=== PATIENT | female | born 1965 | race Caucasian/White ===

== ENCOUNTER 2016-07-05 18:35 | Inpatient (IN) | payer MEDICARE, MEDICAID ==
[2016-07-05] VITALS (18 sets, daily range): BP systolic 66–101; BP diastolic 35–71
[~2016-07-05] VITALS: Ht 162.6 cm; Wt 125.9 kg
[2016-07-05] MEDS ORDERED: NALOXONE 0.4 MG/ML 1 ML (NARCAN) VIAL ONE (18:38)
[2016-07-05] MEDS ORDERED: NS IV 1000 ML 1,000 ML IV ONE ×3 (18:50→20:14)
[2016-07-05 18:57] LABS: BASOPHILS % (AUTO) 0 % (0-10); EOSINOPHILS # (AUTO) 0.1 10^3/uL (0.0-0.3); EOSINOPHILS % (AUTO) 1 % (0-10); LYMPHOCYTES # (AUTO) 1.5 X 10^3 (1.0-4.0); LYMPHOCYTES % (AUTO) 21 % (12-44); MEAN CORPUSCULAR HEMOGLOBIN 31 PG (25-34); MEAN CORPUSCULAR HGB CONC 32 G/DL (32-36); MEAN CORPUSCULAR VOLUME 95 FL (80-99); MEAN PLATELET VOLUME 10.3 FL (7.4-10.4); MONOCYTES # (AUTO) 0.7 X 10^3 (0.0-1.0); MONOCYTES % (AUTO) 10 % (0-12); NEUTROPHILS # (AUTO) 4.8 X 10^3 (1.8-7.8); NEUTROPHILS % (AUTO) 67 % (42-75); PLATELET COUNT 278 10^3/uL (130-400); RED BLOOD COUNT 3.04 10^6/uL (4.35-5.85); RED CELL DISTRIBUTION WIDTH 15.6 % (10.0-14.5); WHITE BLOOD COUNT 7.2 10^3/uL (4.3-11.0)
[2016-07-05] MEDS ORDERED: NALOXONE 0.4 MG/ML 1 ML (NARCAN) VIAL IV ONE (19:00)
[2016-07-05] MEDS ORDERED: NALOXONE 2 MG/2 ML (NARCAN) SYR IV ONE (19:00)
[2016-07-05 19:19] LABS: ALBUMIN 3.3 G/DL (3.2-4.5); BILIRUBIN,TOTAL 0.2 MG/DL (0.1-1.0); CALCIUM 9.3 MG/DL (8.5-10.1); CREATININE SERUM 2.47 MG/DL (0.60-1.30); POTASSIUM 4.9 MMOL/L (3.6-5.0); TOTAL PROTEIN 6.7 G/DL (6.4-8.2)
[2016-07-05 19:37] LABS: BILIRUBIN,URINE 1+ (NEGATIVE); KETONES,URINE NEGATIVE (NEGATIVE); LEUKOCYTE ESTERASE ,URINE 2+ (NEGATIVE); NITRITE,URINE NEGATIVE (NEGATIVE); PH,URINE 5 (5-9); PROTEIN,URINE 1+ (NEGATIVE); UROBILINOGEN,URINE NORMAL (NORMAL)
[2016-07-05 19:47] LABS: INR 1.2 (0.8-1.4); PROTHROMBIN TIME PATIENT 14.8 SEC (12.2-14.7)
[2016-07-05 19:51] LABS: SQUAMOUS EPITHELIAL CELL,UR 0-2 /HPF
[2016-07-05 19:52] LABS: YEAST,URINE RARE /HPF
[2016-07-05 20:07] LABS: ACETAMINOPHEN < 10 UG/ML (10-30); ALCOHOL < 10 MG/DL (<10); MAGNESIUM 1.6 MG/DL (1.8-2.4); SALICYLATE < 5.0 MG/DL (5.0-20.0); hs C REACTIVE PROTEIN 8.94 MG/DL (0.00-0.50)
[2016-07-05] MEDS ORDERED: PREG150C PO (20:11)
[2016-07-05] MEDS ORDERED: ALPR2TAB6 PO (20:11)
[2016-07-05] MEDS ORDERED: FLUO20CA25 PO (20:11)
[2016-07-05] MEDS ORDERED: SPIR100T2 PO (20:11)
[2016-07-05] MEDS ORDERED: VALP250C3 PO (20:11)
[2016-07-05] MEDS ORDERED: LOXA50CA PO (20:11)
[2016-07-05] MEDS ORDERED: DOXE10CA29 PO (20:11)
--- NOTE | 2016-07-05 20:14 | Diagnostic Imaging Report ---
PROCEDURE: CT head and CT cervical spine without contrast. TECHNIQUE: Multiple contiguous axial images were obtained through the brain and cervical spine without the use of intravenous contrast. Sagittal and coronal reformations through the cervical spine were then performed. INDICATION: Fall. Head and neck pain. Comparison made to the head CT from October 23, 2013. FINDINGS: There is no CT demonstration of acute intracranial hemorrhage. There is no evidence of intracranial mass effect. There is no abnormal extra-axial fluid collection. The ventricles are appropriate in size and configuration. The basilar cisterns are patent. No acute posterior fossa abnormality is demonstrated. There is preservation of self-white differentiation. No calvarial fracture evident. No focal soft tissue abnormality is demonstrated. The paranasal sinuses appear clear. The visualized portion of the mastoids are clear. CT cervical spine demonstrates normal alignment. There is normal alignment of the craniocervical junction. There is a normal relationship of lateral masses of C1 and C2. The facets are normally aligned. There is no abnormal facet joint or disc space widening. The vertebral body heights are maintained. No acute cervical spine fracture is demonstrated. There are multilevel degenerative endplate changes as well as multilevel facet arthropathy within the cervical but no evidence to suggest high-grade central canal stenosis. Soft tissues of the neck demonstrate no significant abnormality. Note is made to prior surgical changes involving the left mandible. IMPRESSION: 1. No CT evidence of an acute intracranial abnormality. 2. Cervical spine alignment is normal. Vertebral body heights are maintained without acute fracture. Mild multilevel degenerative endplate changes and facet arthropathy are present throughout the cervical spine without CT evidence of high-grade canal stenosis. Dictated by: Dictated on workstation # [id number]
[2016-07-05] MEDS ORDERED: LEVOFLOXACIN 500 MG/100 ML IV 100 ML IV ONE (20:15)
--- NOTE | 2016-07-05 20:19 | ED General ---
General Chief Complaint: Altered Mental Status Stated Complaint: FALL/SYNCOPE Nursing Triage Note: PT ARRIVED PER EMS, PT WAS FOUND ON FLOOR BY NEIGHBORS, PT IS CONFUSED, SPEECH SLURRED FSBS BY EMS 150'S, PT IS ABLE TO MOVE ALL EXT. UNABLE TO GET C-COLLAR ON D/T BODY HABITUS,C-SPINE MAINTAINED. PT HAS SL IN L HAND BY EMS, PT O2 SAT LOW 80'S, PT ON O2 3L PER N/C O2 UP TO 94% PT HYPOTENSIVE 89/48. PT MUMBLE INCOHERENTLY AT TIMES Nursing Sepsis Screen: No Definite Risk Source of Information: EMS, Old Records Exam Limitations: Other (clinical condition) History of Present Illness Time Seen by Provider: 18:37 Initial Comments This 51-year-old woman presents to emergency room after having a fall in her home. Neighbors heard her fall and found her on the floor in her home. EMS was activated. Patient was extremely somnolent upon arrival but responsive to voice. She was able to follow instructions. Patient was initially registered under the name Meng Rosales and it was quite some time before we were able to determine her true name because her speech was difficult to understand. PLEASE NOTE PRIOR VISITS WERE NOT LINKED TO THE THIS CHART DUE TO NAME ERROR. Patient did not believe she injured her head or neck but she did have tenderness on exam. Placement c-collar was attempted but would not fit due to body habitus. Further attempts were felt more dangerous than simply observing manual C-spine precautions. Patient was not moving much at that time and so manual C-spine precautions were observed from that point forward. Once the actual name was known, review of her chart revealed a recent visit for urinary tract infection. She also had renal failure at that time and was given IV fluids in the ER. It was also noted the patient has a history of prior admission for hypersomnolence and has a history of problems with medication use. Patient was hypoxic on arrival and hypoxia resolved with oxygen applied by nasal cannula. Airway was patent and patient was maintaining her respiratory status. Patient was hypotensive for EMS and on arrival. IV fluids were running. Allergies and Home Medications Allergies Coded Allergies: Penicillins (Verified Allergy, Unknown, 07/05/16) cephalexin (Verified Allergy, Unknown, 07/05/16) prochlorperazine (Verified Allergy, Unknown, 07/05/16) quetiapine (Verified Allergy, Unknown, 07/05/16) Home Medications Albuterol Sulfate 1 Puff Puff 2 PUFF IH QID PRN PRN SHORTNESS OF BREATH ( Reported) Alprazolam 2 Mg Tablet 2 MG PO BID (Reported) Doxepin HCl 10 Mg Capsule 10 MG PO HS (Reported) Fluoxetine HCl 20 Mg Capsule 20 MG PO DAILY (Reported) Glipizide 10 Mg Tablet 10 MG PO DAILY (Reported) Lisinopril 10 Mg Tablet 10 MG PO DAILY (Reported) Loxapine Succinate 50 Mg Capsule 100 MG PO BID (Reported) TAKES 2 (50 MG) CAPSULES Omeprazole 20 Mg Capsule.dr 20 MG PO BID (Reported) Pioglitazone HCl 30 Mg Tablet 30 MG PO DAILY (Reported) Pregabalin 150 Mg Capsule 150 MG PO BID (Reported) Rizatriptan Benzoate 10 Mg Tab.rapdis SL DAILY PRN PRN PRN MIGRAINE (Reported) Simvastatin 40 Mg Tablet 40 MG PO HS (Reported) Spironolactone 100 Mg Tablet 100 MG PO DAILY (Reported) Trihexyphenidyl HCl 5 Mg Tablet 5 MG PO BID WITH MEALS (Reported) Valproic Acid 250 Mg Capsule 500 MG PO DAILY (Reported) TAKES 2 (250 MG) CAPSULES Varenicline Tartrate 1 Mg Tablet 1 MG PO BID (Reported) Constitutional: see HPI EENTM: no symptoms reported Respiratory: see HPI Cardiovascular: see HPI Gastrointestinal: no symptoms reported Genitourinary: see HPI : No Musculoskeletal: no symptoms reported Skin: no symptoms reported Psychiatric/Neurological: See HPI Hematologic/Lymphatic: No Symptoms Reported Past Skxplmv-[id number]-Tpqkzs Hx Patient Social History Alcohol Use: Denies Use Recreational Drug Use: Yes Smoking Status: Former Smoker Recent Infectious Disease Expo: No Recent Hopitalizations: No (UNKNOWN HX) Surgeries HX Surgeries: Yes (Jaw surgery, ovarian cyst) Surgeries: Abdominal (Upper and lower endoscopy), Appendectomy, Bladder Surgery (Urethral dilation) Respiratory Hx Respiratory Disorders: Yes (Tobaccoism, pneumothorax with chest tube placement) Respiratory Disorders: COPD Cardiovascular Hx Cardiac Disorders: Yes Cardiac Disorders: High Cholesterol Neurological Hx Neurological Disorders: Yes Neurological Disorders: Seizure Disorder Reproductive System : No Genitourinary Hx Genitourinary Disorders: Yes Genitourinary Disorders: Kidney Stones, Renal Failure (PKD) Gastrointestinal Hx Gastrointestinal Disorders: Yes Gastrointestinal Disorders: Diverticulosis, Hemorrhoids, Ulcer Endocrine Hx Endocrine Disorders: Yes Endocrine Disorders: Diabetes, Non-Insulin dep HEENT HX ENT Disorders: No Cancer Hx Cancer: No Psychosocial Hx Psychiatric Problems: Yes (History of suicidal ideation and overdose, history of polysubstance abuse) Behavioral Health Disorders: Bipolar Integumentary HX Skin/Integumentary Disorder: No Physical Exam Vital Signs Vital Sign - Last 12Hours 07/05/16 18:35 Temp 96.7 Pulse 95 Resp 18 B/P 89/48 Pulse Ox 94 O2 Delivery Nasal Cannula O2 Flow Rate 2 Capillary Refill : Less Than 3 Seconds General Appearance: No Apparent Distress WD/WN Obese Other (Extremely decreased level of alertness but able to respond to voice and follows commands) HEENT: PERRL/EOMI Normal ENT Inspection Pharynx Normal Other (Teeth absent) Neck: Normal Inspection Supple Other (Tender to palpation) Respiratory: Lungs Clear Normal Breath Sounds No Accessory Muscle Use No Respiratory Distress Cardiovascular: Regular Rate, Rhythm No Edema No Murmur Gastrointestinal: Normal Bowel Sounds Non Tender Soft Extremity: Normal Inspection No Pedal Edema Neurologic/Psychiatric: Motor Weakness (Generalized motor weakness without focal deficit) Other (Extremely somnolent but able to respond to voice and follows commands) Skin: Normal Color Warm/Dry Focused Exam Lactic Acid Level Laboratory Tests Test 07/06/16 15:29 Glucometer 168MG/DL (70-110) H Progress/Results/Core Measures Results/Orders Lab Results Laboratory Tests Test 07/05/16 18:45 07/05/16 19:11 07/05/16 19:30 07/05/16 20:40 Range/Units Acetaminophen Level < 10 L 10-30 UG/ML Alanine Aminotransferase (ALT/SGPT) 22 0-55 U/L Albumin 3.3 3.2-4.5 G/DL Alkaline Phosphatase 57 40-136 U/L Anion Gap 13 5-14 MMOL/L Aspartate Amino Transf (AST/SGOT) 17 5-34 U/L BUN/Creatinine Ratio 15 Basophils # (Auto) 0.0 0.0-0.1 10^3/uL Basophils (%) (Auto) 0 0-10 % Blood Urea Nitrogen 36 H 7-18 MG/DL C-Reactive Protein High Sensitivity 8.94 H 0.00-0.50 MG/DL Calcium Level 9.3 8.5-10.1 MG/DL Carbon Dioxide Level 21 21-32 MMOL/L Chloride Level 107 98-107 MMOL/L Creatinine 2.47 H 0.60-1.30 MG/DL Eosinophils # (Auto) 0.1 0.0-0.3 10^3/uL Eosinophils (%) (Auto) 1 0-10 % Estimat Glomerular Filtration Rate 20 Free Thyroxine 0.81 0.70-1.48 NG/DL Glucose Level 135 H 70-105 MG/DL Hematocrit 29 L 35-52 % Hemoglobin 9.3 L 11.5-16.0 G/DL Lymphocytes # (Auto) 1.5 1.0-4.0 X 10^3 Lymphocytes (%) (Auto) 21 12-44 % Magnesium Level 1.6 L 1.8-2.4 MG/DL Mean Corpuscular Hemoglobin 31 25-34 PG Mean Corpuscular Hemoglobin Concent 32 32-36 G/DL Mean Corpuscular Volume 95 80-99 FL Mean Platelet Volume 10.3 7.4-10.4 FL Monocytes # (Auto) 0.7 0.0-1.0 X 10^3 Monocytes (%) (Auto) 10 0-12 % Neutrophils # (Auto) 4.8 1.8-7.8 X 10^3 Neutrophils (%) (Auto) 67 42-75 % Platelet Count 278 130-400 10^3/uL Potassium Level 4.9 3.6-5.0 MMOL/L Red Blood Count 3.04 L 4.35-5.85 10^6/uL Red Cell Distribution Width 15.6 H 10.0-14.5 % Salicylates Level < 5.0 L 5.0-20.0 MG/DL Serum Alcohol < 10 <10 MG/DL Sodium Level 141 135-145 MMOL/L TSH [place] Testing 0.34 L 0.35-4.94 UIU/ML Total Bilirubin 0.2 0.1-1.0 MG/DL Total Protein 6.7 6.4-8.2 G/DL Troponin I < 0.30 <0.30 NG/ML White Blood Count 7.2 4.3-11.0 10^3/uL Activated Partial Thromboplast Time 30 24-35 SEC INR Comment 1.2 0.8-1.4 Lactic Acid Level 0.64 0.50-2.00 MMOL/L Prothrombin Time 14.8 H 12.2-14.7 SEC Valproic Acid (Depakene) Level 36.6 L 50.0-100.0 UG/ML Ur Tricyclic Antidepressants Screen NEGATIVE NEGATIVE Urine Amphetamines Screen NEGATIVE NEGATIVE Urine Bacteria TRACE /HPF Urine Barbiturates Screen NEGATIVE NEGATIVE Urine Benzodiazepines Screen POSITIVE H NEGATIVE Urine Bilirubin 1+ H NEGATIVE Urine Cannabinoids Screen NEGATIVE NEGATIVE Urine Casts PRESENT /LPF Urine Clarity CLEAR Urine Cocaine Screen NEGATIVE NEGATIVE Urine Color YELLOW Urine Crystals NONE /LPF Urine Culture Indicated YES Urine Glucose (UA) NEGATIVE NEGATIVE Urine Hyaline Casts 5-10 H /LPF Urine Ketones NEGATIVE NEGATIVE Urine Leukocyte Esterase 2+ H NEGATIVE Urine Methadone Screen NEGATIVE NEGATIVE Urine Methamphetamines Screen NEGATIVE NEGATIVE Urine Mucus NEGATIVE /LPF Urine Nitrite NEGATIVE NEGATIVE Urine Opiates Screen NEGATIVE NEGATIVE Urine Oxycodone Screen NEGATIVE NEGATIVE Urine Phencyclidine Screen NEGATIVE NEGATIVE Urine Propoxyphene Screen NEGATIVE NEGATIVE Urine Protein 1+ H NEGATIVE Urine RBC NONE /HPF Urine RBC (Auto) NEGATIVE NEGATIVE Urine Specific [place] 1.015 L 1.016-1.022 Urine Squamous Epithelial Cells 0-2 /HPF Urine Urobilinogen NORMAL NORMAL MG/DL Urine WBC 5-10 H /HPF Urine Yeast RARE /HPF Urine pH 5 5-9 Cruz Test YES-POS Arterial Blood Base Excess -2.8 L -2.5-2.5 MMOL/L Arterial Blood HCO3 22 L 23-27 MMOL/L Arterial Blood Oxygen Saturation 94 94-100 % Arterial Blood Partial Pressure CO2 44 35-45 MMHG Arterial Blood Partial Pressure O2 71 L 79-93 MMHG Arterial Blood Total CO2 23.7 21.0-31.0 MMOL/L Arterial Blood pH 7.33 *L 7.37-7.43 Blood Gas Inspired Oxygen 3L Blood Gas Patient Temperature 97.9 Blood Gas Puncture Site R RAD Blood Gas Ventilator Setting NO Test 07/05/16 23:15 07/06/16 03:15 07/06/16 15:29 Range/Units B-Type Natriuretic Peptide < 10.0 <100.0 PG/ML Basophils # (Auto) 0.0 0.0 0.0-0.1 10^3/uL Basophils (%) (Auto) 0 0 0-10 % Eosinophils # (Auto) 0.1 0.1 0.0-0.3 10^3/uL Eosinophils (%) (Auto) 2 2 0-10 % Hematocrit 28 L 27 L 35-52 % Hemoglobin 8.9 L 8.6 L 11.5-16.0 G/DL Lactic Acid Level 1.49 0.50-2.00 MMOL/L Lymphocytes # (Auto) 1.6 1.5 1.0-4.0 X 10^3 Lymphocytes (%) (Auto) 26 26 12-44 % Mean Corpuscular Hemoglobin 31 31 25-34 PG Mean Corpuscular Hemoglobin Concent 31 L 31 L 32-36 G/DL Mean Corpuscular Volume 97 97 80-99 FL Mean Platelet Volume 10.2 10.2 7.4-10.4 FL Monocytes # (Auto) 0.6 0.6 0.0-1.0 X 10^3 Monocytes (%) (Auto) 10 12 0-12 % Neutrophils # (Auto) 4.0 3.4 1.8-7.8 X 10^3 Neutrophils (%) (Auto) 63 60 42-75 % Platelet Count 272 249 130-400 10^3/uL Red Blood Count 2.85 L 2.76 L 4.35-5.85 10^6/uL Red Cell Distribution Width 15.7 H 15.6 H 10.0-14.5 % White Blood Count 6.4 5.6 4.3-11.0 10^3/uL Alanine Aminotransferase (ALT/SGPT) 16 0-55 U/L Albumin 2.8 L 3.2-4.5 G/DL Alkaline Phosphatase 46 40-136 U/L Anion Gap 9 5-14 MMOL/L Aspartate Amino Transf (AST/SGOT) 12 5-34 U/L BUN/Creatinine Ratio 15 Blood Urea Nitrogen 25 H 7-18 MG/DL Calcium Level 8.1 L 8.5-10.1 MG/DL Carbon Dioxide Level 21 21-32 MMOL/L Chloride Level 116 H 98-107 MMOL/L Creatinine 1.69 H 0.60-1.30 MG/DL Estimat Glomerular Filtration Rate 32 Glucose Level 90 70-105 MG/DL Magnesium Level 2.1 1.8-2.4 MG/DL Phosphorus Level 3.6 2.3-4.7 MG/DL Potassium Level 4.8 3.6-5.0 MMOL/L Sodium Level 146 H 135-145 MMOL/L Total Bilirubin 0.2 0.1-1.0 MG/DL Total Protein 5.6 L 6.4-8.2 G/DL Glucometer 168 H 70-110 MG/DL My Orders Orders-BRUEGGEMANN,LOIS T MD Naloxone Injection (Narcan Injection) (07/05/16 18:38) Cbc With Automated Diff (07/05/16 18:50) Comprehensive Metabolic Panel (07/05/16 18:50) Lactic Acid Analyzer (07/05/16 18:50) Blood Culture (07/05/16 18:50) Sputum Culture (07/05/16 18:50) Ua Culture If Indicated (07/05/16 18:50) Protime With Inr (07/05/16 18:50) Partial Thromboplastin Time (07/05/16 18:50) Chest 1 View, Ap/Pa Only (07/05/16 18:50) O2 (07/05/16 18:50) Saline Lock/Iv-Start (07/05/16 18:50) Saline Lock/Iv-Start (07/05/16 18:50) Vital Signs Adult Sepsis Patie Q1HR (07/05/16 18:50) Remove Rings In Anticipation O (07/05/16 18:50) Ekg Tracing (07/05/16 18:50) Monitor-Rhythm Ecg Trace Only (07/05/16 18:50) Naloxone Injection (Narcan Injection) (07/05/16 19:00) Naloxone Injection (Narcan Injection) (07/05/16 19:00) Ns Iv 1000 Ml (Sodium Chloride 0.9%) (07/05/16 18:50) Ns Iv 1000 Ml (Sodium Chloride 0.9%) (07/05/16 18:50) Acetaminophen (07/05/16 18:57) Alcohol (07/05/16 18:57) Drug Screen Stat (Urine) (07/05/16 18:57) Magnesium (07/05/16 18:57) Salicylate (07/05/16 18:57) Thyroid Analyzer (07/05/16 18:57) Troponin I (07/05/16 18:57) Ct Head/Cervical Spine Wo (07/05/16 19:05) [place] Cath Insertion (07/05/16 19:06) Hs C Reactive Protein (07/05/16 19:06) Valproic Acid (07/05/16 19:43) Urine Culture (07/05/16 19:30) Levofloxacin 500 Mg/100 Ml Iv (Levaquin (07/05/16 20:15) Arterial Blood Gas (07/05/16 20:06) Ns Iv 1000 Ml (Sodium Chloride 0.9%) (07/05/16 20:14) Free T4 (Free Thyroxine) (07/05/16 18:45) Ns Iv 500 Ml (Sodium Chloride 0.9%) (07/05/16 21:01) Medications Given in ED Vital Signs/I&O Vital Sign - Last 12Hours 07/06/16 07/06/16 07/06/16 07/06/16 03:45 04:00 04:00 04:00 Temp 97.0 Pulse 82 88 Resp 14 B/P 85/53 96/50 Pulse Ox 95 94 92 O2 Delivery Nasal Cannula Nasal Cannula O2 Flow Rate 3.00 3.00 3.00 07/06/16 07/06/16 07/06/16 07/06/16 04:15 04:30 04:45 05:00 Pulse 82 85 84 85 Resp B/P 92/57 97/68 99/61 86/34 Pulse Ox 94 93 94 93 O2 Delivery Nasal Cannula Nasal Cannula Nasal Cannula Nasal Cannula O2 Flow Rate 3.00 3.00 3.00 3.00 07/06/16 07/06/16 07/06/16 07/06/16 05:15 05:30 05:45 06:00 Pulse 84 84 85 85 Resp B/P 96/48 96/56 79/55 94/57 Pulse Ox 95 95 94 95 O2 Delivery Nasal Cannula Nasal Cannula Nasal Cannula Nasal Cannula O2 Flow Rate 3.00 3.00 3.00 3.00 07/06/16 07/06/16 07/06/16 07/06/16 06:15 06:30 06:45 07:00 Pulse 85 88 91 92 Resp B/P 90/59 71/54 119/69 Pulse Ox 96 97 95 O2 Delivery Nasal Cannula Nasal Cannula Nasal Cannula O2 Flow Rate 3.00 3.00 3.00 07/06/16 07/06/16 07/06/16 08:00 08:19 12:00 Pulse Ox 94 93 94 O2 Flow Rate 3.00 4.00 3.00 Intake and Output 07/06/16 00:00 Intake Total 2000 ml Balance 2000 ml Blood Pressure Mean: 62 ECG Initial ECG Impression Date: Jul 05, 2016 Initial ECG Impression Time: 18:46 Initial ECG Rate: 92 Initial ECG Rhythm: Normal Sinus Comment Normal sinus rhythm with no ST elevation or depression. No abnormal intervals or axis deviation. Diagnostic Imaging Diagonstic Imaging: CT Plain Films/CT/US/NM/MRI: c-spine, head Comments CT head and C-spine viewed by me and report reviewed. See report below: NAME: [facility] REC#: [id number] PT STATUS: REG ER : 1965 PHYSICIAN: LOIS ESPINOZA MD ADMIT DATE: 07/05/16/ER Signed Date of Exam: 07/05/16 CT HEAD/CERVICAL SPINE WO PROCEDURE: CT head and CT cervical spine without contrast. TECHNIQUE: Multiple contiguous axial images were obtained through the brain and cervical spine without the use of intravenous contrast. Sagittal and coronal reformations through the cervical spine were then performed. INDICATION: Fall. Head and neck pain. Comparison made to the head CT from October 23, 2013. FINDINGS: There is no CT demonstration of acute intracranial hemorrhage. There is no evidence of intracranial mass effect. There is no abnormal extra-axial fluid collection. The ventricles are appropriate in size and configuration. The basilar cisterns are patent. No acute posterior fossa abnormality is demonstrated. There is preservation of self-white differentiation. No calvarial fracture evident. No focal soft tissue abnormality is demonstrated. The paranasal sinuses appear clear. The visualized portion of the mastoids are clear. CT cervical spine demonstrates normal alignment. There is normal alignment of the craniocervical junction. There is a normal relationship of lateral masses of C1 and C2. The facets are normally aligned. There is no abnormal facet joint or disc space widening. The vertebral body heights are maintained. No acute cervical spine fracture is demonstrated. There are multilevel degenerative endplate changes as well as multilevel facet arthropathy within the cervical but no evidence to suggest high-grade central canal stenosis. Soft tissues of the neck demonstrate no significant abnormality. Note is made to prior surgical changes involving the left mandible. IMPRESSION: 1. No CT evidence of an acute intracranial abnormality. 2. Cervical spine alignment is normal. Vertebral body heights are maintained without acute fracture. Mild multilevel degenerative endplate changes and facet arthropathy are present throughout the cervical spine without CT evidence of high-grade canal stenosis. Dictated by: Dictated on workstation # [id number] Dict: 07/05/162004 Trans: 07/05/162013 NATAN [id number] Interpreted by: MICHAEL ROJAS MD Electronically signed by:MICHAEL ROJAS MD 07/05/162015 Diagonstic Imaging: Xray Plain Films/CT/US/NM/MRI: chest Comments NAME: [facility] REC#: [id number] PT STATUS: REG ER : 1965 PHYSICIAN: LOIS ESPINOZA MD ADMIT DATE: 07/05/16/ER Signed Date of Exam: 07/05/16 CHEST 1 VIEW, AP/PA ONLY EXAMINATION: Portable chest compared to prior study from June 05, 2016 INDICATION: Altered mental status. FINDINGS: Lung volumes are low with some basilar atelectasis. There is no alveolar consolidation. There is no large effusion or pneumothorax. Heart size is unchanged allowing for differences in technique. No findings to suggest failure. IMPRESSION: 1. Low lung volumes with some basilar atelectasis. No acute cardiopulmonary process evident. Dictated by: Dictated on workstation # [id number] Dict: 07/05/162037 Trans: 07/05/162045 NATAN [id number] Interpreted by: MICHAEL ROJAS MD Electronically signed by:MICHAEL ROJAS MD 07/05/162048 Critical Care Note Critical Care Start Time: 18:37 Stop Time: 21:30 Time of : 21:10 Progress Care of this patient was initially complicated because she was initially registered under the name Meng Rosales. It was quite some time before we were able to correct the name. The chart from the present visit will have to be linked to the prior visits for Meng Martinez by medical records at a later date. Patient had a recent admission for hypersomnolence. She also has a documented history of prior problems with medication mismanagement. See her prior charts for full history. Patient has been intermittently hypotensive and transiently responsive to IV fluids. She has now received nearly 3 L of normal saline but is still hypotensive with a systolic blood pressure of 86. She had no response to Narcan on arrival, but mental status has now improved significantly. In fact patient just got up out of bed and ambulated to the bedside. She is able to keep her head up with eyes open and carry on a conversation fairly well although she is still rather confused and somnolent. Patient was found to have urinary tract infection. Her prior urine culture showed Aerococcus urinae. Patient was not felt to be septic as she did not meet SIRS criteria. She was started on Levaquin in the emergency room. An ABG was checked to rule out hypercarbia. Patient was found to be in acute renal failure. Urine output has been reasonably good while in the ER. Cervical spine was cleared after review of CT reports. Chest x-ray was then ordered. 21:22 - Case was reviewed with the eICU physician integrity consultant. Plan is to continue bolusing fluids rather than use pressors as patient's overall condition is improving. Patient continues to improve functionally and move about the bed despite hypotension. 3 L of normal saline has been infused thus far and another 500 mL boluse is infusing at present. He also requests that a lactic acid and BMP be checked in 2 hours. These were added to the bridging orders. Departure Communication Time/Spoke to Admitting Phy: 20:[address] Main Impression Impression: Primary Impression: Acute renal failure Qualified Code: N17.9 - Acute kidney failure, unspecified Additional Impressions: Hypotension Qualified Code: I95.9 - Hypotension, unspecified Altered mental status Qualified Code: R41.82 - Altered mental status, unspecified Urinary tract infection Qualified Code: N39.0 - Urinary tract infection, site not specified Hypomagnesemia Disposition: ADMITTED INPATIENT Condition: Improved Decision to Admit Reason: Admit from ER (General) Decision to Admit/Date: Jul 05, 2016 Time/Decision to Admit Time: 19:00 LOIS ESPINOZA MD Jul 05, 2016 20:19
[2016-07-05 20:20] LABS: TROPONIN I < 0.30 NG/ML (<0.30)
--- NOTE | 2016-07-05 20:46 | Diagnostic Imaging Report ---
EXAMINATION: Portable chest compared to prior study from June 05, 2016 INDICATION: Altered mental status. FINDINGS: Lung volumes are low with some basilar atelectasis. There is no alveolar consolidation. There is no large effusion or pneumothorax. Heart size is unchanged allowing for differences in technique. No findings to suggest failure. IMPRESSION: 1. Low lung volumes with some basilar atelectasis. No acute cardiopulmonary process evident. Dictated by: Dictated on workstation # [id number]
[2016-07-05 20:48] LABS: ABG BASE EXCESS -2.8 MMOL/L (-2.5-2.5); ABG HCO3 22 MMOL/L (23-27); ABG OXYGEN SATURATION 94 % (94-100); ABG PCO2 44 MMHG (35-45); ABG PO2 71 MMHG (79-93); ABG TCO2 23.7 MMOL/L (21.0-31.0)
[2016-07-05 20:49] LABS: ABG PH 7.33 (7.37-7.43); ALLENS TEST YES-POS; PATIENT TEMP 97.9
[2016-07-05] MEDS ORDERED: NS IV 500 ML 500 ML IV ONE (21:01)
[2016-07-05] MEDS ORDERED: NS IV 500 ML 500 ML IV PRN (22:00)
[2016-07-05] MEDS ORDERED: ONDANSETRON 4 MG/2 ML (SDV) Z0FRAN IV PRN (22:00)
[2016-07-05] MEDS: CATHETER FLUSH 10 ML SYR IV SCH (22:00)
[2016-07-05] MEDS: MAGNESIUM 1 GM/D5W 100 ML IVPB IV SCH ×2 (22:18→23:16)
[2016-07-05] MEDS: NS IV 1000 ML 1,000 ML IV SCH (22:57)
[2016-07-05 23:27] LABS: BASOPHILS % (AUTO) 0 % (0-10); EOSINOPHILS # (AUTO) 0.1 10^3/uL (0.0-0.3); EOSINOPHILS % (AUTO) 2 % (0-10); LYMPHOCYTES # (AUTO) 1.6 X 10^3 (1.0-4.0); LYMPHOCYTES % (AUTO) 26 % (12-44); MEAN CORPUSCULAR HGB CONC 31 G/DL (32-36); MEAN CORPUSCULAR VOLUME 97 FL (80-99); MEAN PLATELET VOLUME 10.2 FL (7.4-10.4); MONOCYTES # (AUTO) 0.6 X 10^3 (0.0-1.0); MONOCYTES % (AUTO) 10 % (0-12); NEUTROPHILS % (AUTO) 63 % (42-75); PLATELET COUNT 272 10^3/uL (130-400); RED BLOOD COUNT 2.85 10^6/uL (4.35-5.85); RED CELL DISTRIBUTION WIDTH 15.7 % (10.0-14.5); WHITE BLOOD COUNT 6.4 10^3/uL (4.3-11.0)
[2016-07-05 23:31] LABS: MEAN CORPUSCULAR HEMOGLOBIN 31 PG (25-34)
[2016-07-06] VITALS (41 sets, daily range): BP systolic 71–144; BP diastolic 34–91
[2016-07-06] MEDS ORDERED: LACTATED RINGERS 1,000 ML IV ONE ×2 (02:48→03:15)
[2016-07-06 03:34] LABS: BASOPHILS % (AUTO) 0 % (0-10); EOSINOPHILS # (AUTO) 0.1 10^3/uL (0.0-0.3); EOSINOPHILS % (AUTO) 2 % (0-10); LYMPHOCYTES # (AUTO) 1.5 X 10^3 (1.0-4.0); LYMPHOCYTES % (AUTO) 26 % (12-44); MEAN CORPUSCULAR HGB CONC 31 G/DL (32-36); MEAN CORPUSCULAR VOLUME 97 FL (80-99); MEAN PLATELET VOLUME 10.2 FL (7.4-10.4); MONOCYTES # (AUTO) 0.6 X 10^3 (0.0-1.0); MONOCYTES % (AUTO) 12 % (0-12); NEUTROPHILS # (AUTO) 3.4 X 10^3 (1.8-7.8); NEUTROPHILS % (AUTO) 60 % (42-75); PLATELET COUNT 249 10^3/uL (130-400); RED BLOOD COUNT 2.76 10^6/uL (4.35-5.85); RED CELL DISTRIBUTION WIDTH 15.6 % (10.0-14.5); WHITE BLOOD COUNT 5.6 10^3/uL (4.3-11.0)
[2016-07-06 03:35] LABS: MEAN CORPUSCULAR HEMOGLOBIN 31 PG (25-34)
[2016-07-06 03:54] LABS: ALBUMIN 2.8 G/DL (3.2-4.5); BILIRUBIN,TOTAL 0.2 MG/DL (0.1-1.0); CALCIUM 8.1 MG/DL (8.5-10.1); CREATININE SERUM 1.69 MG/DL (0.60-1.30); MAGNESIUM 2.1 MG/DL (1.8-2.4); PHOSPHORUS 3.6 MG/DL (2.3-4.7); POTASSIUM 4.8 MMOL/L (3.6-5.0); TOTAL PROTEIN 5.6 G/DL (6.4-8.2)
[2016-07-06] MEDS: CATHETER FLUSH 10 ML SYR IV SCH ×3 (05:45→22:00)
[2016-07-06] MEDS ORDERED: inSUlin (REGULAR) HUMAN 1 UNIT/0.01 ML (CHARGE PER UNIT) SC SCH (06:00)
[2016-07-06] MEDS ORDERED: ALBUMIN 5% 12.5 GM/250 ML 500 ML IV ONE ×2 (06:01→06:45)
[2016-07-06] MEDS: NS IV 1000 ML 1,000 ML IV SCH (06:16)
--- NOTE | 2016-07-06 06:41 | Pulmonary Consultation ---
History of Present Illness History of Present Illness Date of Consultation 07/06/16 06:35 Date of Admission History of Present Illness 51 yo with hx of DM presented secondary to MS and hypotensive. Pt has been given 5 liters of NS and 25gms of albumin. Pt was found by neighbors after they heard a fall and found her laying on the floor. Pt was very lethargic but responsive to voice. CT of head is negative. Pt takes xanax at home. She states she has not taken any Xanax prior to admission however UDS is positive for benzos. I am consulted for ICU management. Allergies and Home Medications Allergies Coded Allergies: Penicillins (Verified Allergy, Unknown, 07/05/16) cephalexin (Verified Allergy, Unknown, 07/05/16) prochlorperazine (Verified Allergy, Unknown, 07/05/16) quetiapine (Verified Allergy, Unknown, 07/05/16) Home Medications Alprazolam 2 Mg Tablet #60 (Reported) Doxepin HCl 10 Mg Capsule #30 (Reported) Fluoxetine HCl 20 Mg Capsule #30 (Reported) Loxapine Succinate 50 Mg Capsule #120 (Reported) Pregabalin 150 Mg Capsule #60 (Reported) Spironolactone 100 Mg Tablet #30 (Reported) Valproic Acid 250 Mg Capsule #120 (Reported) Past Mqoopro-Kvablb-Yneehs Hx Patient Social History Alcohol Use: Denies Use Recreational Drug Use: No Smoking Status: Former Smoker Type Used: Cigarettes Recent Foreign Travel: No Contact w/Someone Who Travel: No Recent Infectious Disease Expo: No Recent Hopitalizations: No (UNKNOWN HX) Physical Abuse Screen: No Sexual Abuse: No Respiratory Respiratory Disorders: COPD Genitourinary Genitourinary Disorders: Polycystic Kidney Disease Review of Systems Constitutional: : Malaise: WeaknessNo: Chills, Fever, Other, Sweats Eyes: No: Conjunctivae inflammation, Eyelid inflammation, Other, Pain, Redness , Vision change ENT: No: Ear discharge, Ear pain, Mouth pain, Mouth swelling, Nose congestion, Nose discharge, Nose pain, Other, Throat pain, Throat swelling Respiratory: : Cough: Dry: Shortness of breath Cardiovascular: : Lt HeadednessNo: Chest Pain, Edema, Orthopnea, Other, Palpitations, Paroxysmal Noc. Dyspnea Gastrointestinal: No: Abdominal Pain, Constipation, Diarrhea, Hematochezia, Melena, Nausea, Other, Vomiting Neurological: : Confusion: Incoordination: Weakness Exam Exam Vital Signs Date Time Temp Pulse Resp B/P Pulse Ox O2 Delivery O2 Flow Rate FiO2 07/06/16 06:15 85 15 90/59 96 Nasal Cannula 3.00 07/06/16 06:00 85 19 94/57 95 Nasal Cannula 3.00 07/06/16 05:45 85 16 79/55 94 Nasal Cannula 3.00 07/06/16 05:30 84 15 96/56 95 Nasal Cannula 3.00 07/06/16 05:15 84 20 96/48 95 Nasal Cannula 3.00 07/06/16 05:00 85 26 86/34 93 Nasal Cannula 3.00 07/06/16 04:45 84 18 99/61 94 Nasal Cannula 3.00 07/06/16 04:30 85 16 97/68 93 Nasal Cannula 3.00 07/06/16 04:15 82 15 92/57 94 Nasal Cannula 3.00 07/06/16 04:00 88 14 96/50 92 Nasal Cannula 3.00 07/06/16 04:00 94 3.00 07/06/16 04:00 97.0 07/06/16 03:45 82 12 85/53 95 Nasal Cannula 3.00 07/06/16 03:30 85 12 83/50 96 Nasal Cannula 3.00 07/06/16 03:15 85 13 81/44 96 Nasal Cannula 3.00 07/06/16 03:00 86 12 85/38 94 Nasal Cannula 3.00 07/06/16 02:45 86 13 84/45 95 Nasal Cannula 3.00 07/06/16 02:30 86 12 74/54 94 Nasal Cannula 3.00 07/06/16 02:15 86 13 81/58 94 Nasal Cannula 3.00 07/06/16 02:00 87 16 88/75 95 Nasal Cannula 3.00 07/06/16 01:45 87 14 120/61 95 Nasal Cannula 5.00 07/06/16 01:30 86 15 100/51 94 Nasal Cannula 5.00 07/06/16 01:15 85 16 87/47 95 Nasal Cannula 5.00 07/06/16 01:00 88 17 83/52 89 Nasal Cannula 5.00 07/06/16 01:00 88 07/06/16 00:45 84 26 88/58 95 Nasal Cannula 5.00 07/06/16 00:30 87 17 85/59 93 Nasal Cannula 5.00 07/06/16 00:15 85 25 82/58 97 Nasal Cannula 5.00 07/06/16 00:00 97.6 83 16 111/73 96 Nasal Cannula 4.00 07/06/16 00:00 96 4.00 07/05/16 23:45 86 14 90/71 96 Nasal Cannula 5.00 07/05/16 23:30 86 13 85/57 97 Nasal Cannula 5.00 07/05/16 23:15 87 22 91/48 91 Nasal Cannula 5.00 07/05/16 23:00 89 15 90/59 97 Nasal Cannula 5.00 07/05/16 22:45 87 23 76/52 98 Nasal Cannula 5.00 07/05/16 22:30 90 22 91/47 100 Nasal Cannula 5.00 07/05/16 22:15 96 20 100/50 98 Nasal Cannula 5.00 07/05/16 22:10 5.00 07/05/16 22:00 86 15 100/58 94 Nasal Cannula 5.00 07/05/16 21:54 88 07/05/16 21:50 89 21 86/55 89 Nasal Cannula 5.00 07/05/16 21:48 91 19 96/49 83 Nasal Cannula 5.00 07/05/16 21:46 93 26 86/35 Nasal Cannula 5.00 07/05/16 21:45 92 5.00 07/05/16 21:44 86/35 Nasal Cannula 5.00 07/05/16 21:40 98.2 89 18 86/35 92 Nasal Cannula 5.00 07/05/16 21:29 97.1 84 18 96 3 07/05/16 21:15 88 18 92/47 95 Nasal Cannula 3 07/05/16 20:30 89 21 101/44 95 Nasal Cannula 3 07/05/16 20:00 89 14 66/48 98 Nasal Cannula 2 07/05/16 19:30 93 14 96/54 96 Nasal Cannula 2 07/05/16 19:15 95 11 101/64 98 Nasal Cannula 2 07/05/16 18:35 96.7 95 18 89/48 94 Nasal Cannula 2 07/05/16 18:35 94 Nasal Cannula 2 I & O 07/06/16 07:00 Intake Total 6300 ml Output Total 1675 ml Balance 4625 ml General Appearance: No Apparent Distress WD/WN HEENT: PERRL/EOMI Neck: Supple Respiratory: No Accessory Muscle Use No Respiratory Distress Decreased Breath Sounds Cardiovascular: Regular Rate, Rhythm Capillary Refill: Less Than 3 Seconds Gastrointestinal: normal bowel sounds non tender soft no organomegaly Neurologic/Psychiatric: Alert Oriented x3 Skin: Normal Color Warm/Dry Lymphatic: No Adenopathy Results Lab Laboratory Tests 07/05/16 18:45 07/05/16 23:15 07/06/16 03:15 Assessment/Plan Assessment/Plan -MS Change - probably secondary to Xanax- OD - pt denies -S/P fall -initial CT negative -Neurochecks Q2 - currently MS is improved -Hypotension -Continue Albumin -INcrease IVF to 150 of 1/2 NS -Hypernatremia, Hyperchloremia -1/2 NS COPD -SVNS TID -Anemia -occult stools -Morbid obesity Clinical Quality Measures DVT/VTE Risk/Contraindication: Risk Factor Score Per Nursin RFS Level Per Nursing on Admit: 2=Moderate WALT CAMACHO DO Jul 06, 2016 06:41
[2016-07-06] MEDS ORDERED: 1/2 NS IV SOLUTION 1,000 ML IV ONE (06:49)
[2016-07-06] MEDS: 1/2 NS IV SOLUTION 1,000 ML IV SCH ×3 (06:56→22:28)
[2016-07-06] MEDS ORDERED: RT-ALBUTEROL/IPRATROPIUM 3 ML (DUONEB) VIAL INH PRN (07:15)
[2016-07-06] MEDS: RT-ALBUTEROL/IPRATROPIUM 3 ML (DUONEB) VIAL INH SCH ×3 (08:18→19:08)
--- NOTE | 2016-07-06 09:18 | History & Physical-Hospitalist ---
HPI History of Present Illness: HPI/Chief Complaint CC: AMS HPI: This is a 51-year-old white female clinic patient of [facility] with oxygen dependent COPD the presents to the ICU after found unresponsive with acute renal failure. Workup ensued and aggressive IV fluid given for hypotension with improvement of creatinine today. Dr. Tillman has provided consultation services and we believe that it was a Xanax overdose probable nonpurposeful because she denies that very but overall feeling much better and wanting to eat breakfast. She denies any nausea or pain. Source: patient, RN/MD Exam Limitations: clinical condition Date Seen 07/06/16 Attending Physician Adina Main MD PCP jean-pierre,[facility] Referring Physician Date of Admission Jul 05, 2016 at 20:52 Home Medications & Allergies Home Medications Reviewed patient Home Medication Reconciliation Form Allergies Coded Allergies: Penicillins (Verified Allergy, Unknown, 07/05/16) cephalexin (Verified Allergy, Unknown, 07/05/16) prochlorperazine (Verified Allergy, Unknown, 07/05/16) quetiapine (Verified Allergy, Unknown, 07/05/16) Past Wqnafmh-Rdnadn-Hfcirc Hx Patient Social History Marrital Status: single Employed/Student: unemployed Alcohol Use: Denies Use Recreational Drug Use: No Smoking Status: Former Smoker Type Used: Cigarettes Physical Abuse Screen: No Sexual Abuse: No Recent Foreign Travel: No Contact w/other who traveled: No Recent Hopitalizations: No (UNKNOWN HX) Recent Infectious Disease Expo: No Surgeries HX Surgeries: Yes Respiratory Hx Respiratory Disorders: Yes Respiratory Disorders: COPD, Sleep Apnea Cardiovascular Hx Cardiovascular Disorders: No Neurological Hx Neurological Disorders: Yes Neurological Disorders: Neuropathy Genitourinary Hx Genitourinary Disorders: Yes Genitourinary Disorders: Renal Failure, Polycystic Kidney Disease Gastrointestinal Hx Gastrointestinal Disorders: Yes Gastrointestinal Disorders: Chronic Constipation Musculoskeletal Hx Musculoskeletal Disorders: Yes Musculoskeletal Disorders: Arthritis HEENT HX ENT Disorders: No Cancer Hx Cancer: No Psychosocial Hx Psychiatric Problems: No Review of Systems Constitutional: see HPI dizziness weakness EENTM: no symptoms reported Respiratory: no symptoms reported Cardiovascular: no symptoms reported Gastrointestinal: no symptoms reported Genitourinary: decreased output Musculoskeletal: back pain Skin: no symptoms reported Psychiatric/Neurological: Anxiety Depressed All Other Systems Reviewed Negative Unless Noted: Yes Physical Exam Physical Exam Vital Signs Vital Sign - Last 12Hours 07/05/16 18:35 Temp 96.7 Pulse 95 Resp 18 B/P 89/48 Pulse Ox 94 O2 Delivery Nasal Cannula O2 Flow Rate 2 Capillary Refill : Less Than 3 Seconds General Appearance: No Apparent Distress WD/WN Chronically ill Obese Eyes: Bilateral Eye Normal Inspection, Bilateral Eye PERRL HEENT: PERRL/EOMI Normal ENT Inspection Pharynx Normal Neck: Full Range of Motion Normal Inspection Non Tender Supple Carotid Bruit Respiratory: Chest Non Tender Lungs Clear Normal Breath Sounds No Accessory Muscle Use No Respiratory Distress Cardiovascular: Regular Rate, Rhythm No Edema No Gallop No JVD No Murmur Normal Peripheral Pulses Gastrointestinal: Normal Bowel Sounds No Organomegaly No Pulsatile Mass Non Tender Soft Back: Normal Inspection No CVA Tenderness No Vertebral Tenderness Extremity: Normal Capillary Refill Normal Inspection Normal Range of Motion Non Tender No Calf Tenderness No Pedal Edema Neurologic/Psychiatric: Alert No Motor/Sensory Deficits Other (flat affect, drowsy subtle ) Skin: Normal Color Warm/Dry Lymphatic: No Adenopathy Results Results/Procedures Lab Laboratory Tests 07/05/16 18:45 07/05/16 23:15 07/06/16 03:15 Assessment/Plan Admission Diagnosis -MS Change - probably secondary to Xanax- OD - pt denies this possibility but improving -S/P fall -Hypotension s/p 5 liters of fluid and Albumin -Hypernatremia, Hyperchloremia receiving 1/2NS IVF COPD O2 dependent -Anemia -Morbid obesity ARF improved today on IVF Assessment and Plan Maintain critical care management Monitor creatinine O2 Nebs SCD's Monitor sodium level Clinical Quality Measures DVT/VTE Risk/Contraindication: Risk Factor Score Per Nursin RFS Level Per Nursing on Admit: 2=Moderate CORNELIUS EAGLE DO Jul 06, 2016 09:18
--- NOTE | 2016-07-06 09:18 | Diagnostic Imaging Report ---
INDICATION: Hypotension. Portable chest 4:34 AM. Heart size and pulmonary vascularity are normal. Lungs are clear. There are no effusions or pneumothoraces. IMPRESSION: Negative chest. Dictated by: Dictated on workstation # [id number]
[2016-07-06] MEDS: FAMOTIDINE 20MG/2ML IV (PEPCID) IV SCH ×2 (10:04→21:15)
[2016-07-06] MEDS ORDERED: TRIH5TAB2 PO (10:32)
[2016-07-06] MEDS ORDERED: SIMV40TA4 PO (10:32)
[2016-07-06] MEDS ORDERED: LISI10TA2 PO (10:32)
[2016-07-06] MEDS ORDERED: RT-ALBUINH IH (10:32)
[2016-07-06] MEDS ORDERED: PIOG30TA26 PO (10:32)
[2016-07-06] MEDS ORDERED: RIZA10TA25 SL (10:32)
[2016-07-06] MEDS ORDERED: OMEP20CA12 PO (10:32)
[2016-07-06] MEDS ORDERED: VARE1TAB22 PO (10:32)
[2016-07-06] MEDS ORDERED: GLIP10TA13 PO (10:32)
--- NOTE | 2016-07-06 11:43 | ST Dysphagia Evaluation ---
Speech Evaluation-General Medical Diagnosis Mental Status Change Onset Date: Jul 06, 2016 Therapy Diagnosis Therapy Diagnosis: Mild Oral Dysphagia Precautions Precautions: Aspiration Precautions/Isolations: Fall Prevention, Standard Precautions Referral Referring Physician: Dr. Adina Main Reason for Referral: Evaluation/Treatment Clinical Bedside Swallowing Evaluation Medical History Pertinent Medical History: COPD Anemia, Polycystic Kidney Disease Reviewed History: Yes Speech PLF/Current-Dysphagia Prior Level of Function The patient reported she consumed a regular diet with thin liquids prior to admission. The patient denied signs/symptoms of aspiration with any consistency she currently consumes, however, does state she has a difficult time masticating solids without the presence of her dentures (the patient reports her dentures were lost in transit to the hospital). Subjective The patient was recently admitted to [facility] with a diagnosis of altered mental status. The patient greeted the clinician appropriately and agreed to participate in the dysphagia evaluation on this date. CXR: 07/05/2016: No acute cardiopulmonary process evident. Cognitive Status Patient Orientation: Person, Place Oral Motor Skills Dentition: Edentalous Current Food Consistancy: Regular Ability to Follow Directions: Good Oral Expression Ability: Mild Impairment Voice Voice Phonatory-Based Quality: Glottal Haney Voice Pitch: Mildly Low Voice Loudness: Mildly Soft/Quiet Face Facial Symmetry: Symmetrical Oral-Facial Assessment Oral-Facial Dentition: Normal Labial Seal Description: Normal Smile: Normal Puff Cheeks: Normal Lingual Protrusion: Normal Lingual ROM: Normal Lingual Strength: Normal Pharynx Velopharyngeal Move.: Normal Volitional Dry Swallow: Yes Dysphagia Evaluation Consistencies Presented: Regular, Thin Liquid, Mechanical Soft - The patient demonstrated increased mastication time with solid consistencies, however, was able to clear the material with a subsequent bolus of thin liquid. - No pharyngeal deficits were noted throughout the evaluation. - Thin Liquid (via teaspoon and cup sip), Mechanical Soft (scrambled eggs, muffin), Solid (vargas, sausage, apple slices): No signs/symptoms of aspiration were demonstrated with any consistency demonstrated. The patient's vocal quality remained clear throughout the session. The patient denied odynophagia or discomfort upon swallowing. Dietary Recommendations: Regular Liquid Recommendations: Thin Swallowing Precautions: Alternate Liquids/Solids, Decreased Bolus 1/2 Tsp, Decreased Rate of Oral Intake, Small Bites and Sips, Sitting 90 Degrees 30 Post Intake Dysphagia Evaluation Summary Mild oral dysphagia secondary to the patient's current edentulous state. Speech-Plan Treatment Plan Speech Therapy Treatment Plan: Discontinue ST Evaluation, only. Rehab Potential: Guarded Safety Risks/Education Teaching Recipient: Patient Teaching Methods: Discussion Response to Teaching: Verbalize Understanding, Reinforcement Needed Education Topics Provided: Results, Recommendations, Swallowing Strategies, Signs/symptoms of aspiration Time Speech Therapy Time In: 09:20 Speech Therapy Time Out: 09:45 Total Billed Time: 25 Billed Treatment Time 1, SANIA GRANDA Jul 06, 2016 11:43
--- NOTE | 2016-07-06 11:59 | Physical Therapy Evaluation ---
PT Evaluation-General Medical Diagnosis Admission Date Jul 05, 2016 at 20:52 Medical Diagnosis: Mental Status Change Onset Date: Jul 06, 2016 Therapy Diagnosis Therapy Diagnosis: Immobility, Falls Height/Weight Height (Feet): 5 Height (Inches): 4.00 Weight (Pounds): 279 Weight (Ounces): 1.0 Precautions Precautions/Isolations: Fall Prevention, Standard Precautions Referral Physician: Hien Horton Reason for Referral: Evaluation/Treatment Medical History Pertinent Medical History: COPD, DM Additional Medical History obesity, oxygen dependent Current History Patient resides a [facility]. She fell, possibly due to unintentional overdose of Xanax. Reviewed History: Yes Social History Home: Apartment Current Living Status: Alone Entry Into Home: Elevator Prior/Core FIM Prior Level of Function Functional [place] Measure 0=Not Assessed/NA 4=Minimal Assistance 1=Total Assistance 5=Supervision or Setup 2=Maximal Assistance 6=Modified [place] 3=Moderate Assistance 7=Complete [place] Bed Mobility: 6 Transfers (B,C,W/C) (FIM): 6 Gait: 6 PT Evaluation-Current Subjective Pt reports her backside is sore from the fall. She feels she is slowly coming back to her normal level of mobility and cognition but is still not quite right. Objective Patient Orientation: Person, Place, Time Problem Solving: Fair Attachments: Oxygen, Allen Catheter, IV ROM/Strength ROM Lower Extremities WFL Strenght Lower Extremities gross 4/5 throughout Transfers Functional [place] Measure 0=Not Assessed/NA 4=Minimal Assistance 1=Total Assistance 5=Supervision or Setup 2=Maximal Assistance 6=Modified [place] 3=Moderate Assistance 7=Complete [place] Transfers (B, C, W/C) (FIM): 4 Scootin Rollin Supine to/from Sit: 4 Sit to/from Stand: 5 Gait Mode of Locomotion: Walk Anticipated Mode of Locomotion: Walk Distance (FIM): 1=409-80 ft Distance: 50 Gait Level of Assist: 4 Gait Persons Needed: 1 Gait Assistive Device: FWW Comments/Gait Description Pt had a steady gait pattern. Wide base of support. She showed good management of a FWW. She is used to a 4 wheel walker at home. Balance Sitting Static: Good Sitting Dynamic: Good Standing Static: Fair Standing Dynamic: Fair Assessment/Needs Pt has decreased LE strength, impaired bed mobility, and decreased safety during standing activities. She will benefit from therapy to promote safe mobility to allow dc to home. Rehab Potential: Good Post Rehab Potential-Barriers: none PT Title I Math Tutor Goals Title I Math Tutor Goals PT Title I Math Tutor Goals Time Frame: Jul 17, 2016 Transfers (B,C,W/C) (FIM): 6 Gait (FIM): 5 Gait distance (FIM): 3=150 ft Distance: 150 Gait Level of Assist: 5 Gait Assistive Device: Walker 4 Wheeled PT Plan Problem List Problem List: Activity Tolerance, Functional Strength, Safety, Gait Treatment/Plan Treatment Plan: Continue Plan of Care Treatment Plan: Bed Mobility, Functional Activity Nora, Functional Strength, Gait, Safety Treatment Duration: Jul 17, 2016 # of days/week 6 Visits Per Week: 11 Pt/Family Agrees w/Plan: Yes Safety Risks/Education Patient Education: Gait Training, Safety Issues Teaching Recipient: Patient Teaching Methods: Discussion Time/GCodes Time In: 1130 Time Out: 1200 Total Billed Treatment Time: 30 Total Billed Treatment visit, eval moderate complexity LOUISA WILKES PT Jul 06, 2016 11:59
[2016-07-06] MEDS: inSUlin (REGULAR) HUMAN 1 UNIT/0.01 ML (CHARGE PER UNIT) SC SCH ×3 (13:11→21:00)
[2016-07-06] MEDS: CATHETER FLUSH 10 ML SYR IV PRN (21:16)
[2016-07-06] MEDS: LEVOFLOXACIN 250 MG/D5W 50 ML (PRE-MIX) IV SCH (21:20)
[2016-07-07] VITALS (11 sets, daily range): BP systolic 90–145; BP diastolic 57–92
[2016-07-07 04:40] LABS: BASOPHILS % (AUTO) 0 % (0-10); EOSINOPHILS # (AUTO) 0.1 10^3/uL (0.0-0.3); EOSINOPHILS % (AUTO) 1 % (0-10); LYMPHOCYTES # (AUTO) 1.6 X 10^3 (1.0-4.0); LYMPHOCYTES % (AUTO) 26 % (12-44); MEAN CORPUSCULAR HEMOGLOBIN 30 PG (25-34); MEAN CORPUSCULAR HGB CONC 31 G/DL (32-36); MEAN CORPUSCULAR VOLUME 97 FL (80-99); MEAN PLATELET VOLUME 10.4 FL (7.4-10.4); MONOCYTES # (AUTO) 0.6 X 10^3 (0.0-1.0); MONOCYTES % (AUTO) 10 % (0-12); NEUTROPHILS # (AUTO) 3.8 X 10^3 (1.8-7.8); NEUTROPHILS % (AUTO) 63 % (42-75); PLATELET COUNT 269 10^3/uL (130-400); RED BLOOD COUNT 2.79 10^6/uL (4.35-5.85); RED CELL DISTRIBUTION WIDTH 15.7 % (10.0-14.5); WHITE BLOOD COUNT 6.1 10^3/uL (4.3-11.0)
[2016-07-07 05:09] LABS: CALCIUM 8.7 MG/DL (8.5-10.1); CREATININE SERUM 1.49 MG/DL (0.60-1.30); MAGNESIUM 1.8 MG/DL (1.8-2.4); PHOSPHORUS 3.7 MG/DL (2.3-4.7); POTASSIUM 4.6 MMOL/L (3.6-5.0)
[2016-07-07] MEDS: 1/2 NS IV SOLUTION 1,000 ML IV SCH (05:35)
[2016-07-07] MEDS: inSUlin (REGULAR) HUMAN 1 UNIT/0.01 ML (CHARGE PER UNIT) SC SCH ×4 (06:00→21:16)
[2016-07-07] MEDS: KCL 20 MEQ TAB (K-DUR) PO SCH (06:00)
[2016-07-07] MEDS ORDERED: POTASSIUM CL 10MEQ/50ML IVPB 50 ML IV SCH (06:00)
[2016-07-07] MEDS ORDERED: MAGNESIUM 1 GM/100 ML IVPB 100 ML IV SCH (06:00)
[2016-07-07] MEDS: CATHETER FLUSH 10 ML SYR IV SCH ×3 (06:00→21:16)
--- NOTE | 2016-07-07 07:06 | Pulmonary Progress Note ---
Subjective Subjective/Events-last exam PT is much better today and is A&0 X 3 Exam Exam Vital Signs Date Time Temp Pulse Resp B/P Pulse Ox O2 Delivery O2 Flow Rate FiO2 07/07/16 06:00 93 23 141/92 92 Nasal Cannula 2.00 07/07/16 05:30 Nasal Cannula 2.00 07/07/16 05:00 79 18 107/65 94 Nasal Cannula 3.00 07/07/16 04:00 94 3.00 07/07/16 04:00 97.5 80 15 115/72 95 Nasal Cannula 3.00 07/07/16 03:00 85 14 90/57 92 Nasal Cannula 3.00 07/07/16 02:00 93 18 114/71 91 Nasal Cannula 3.00 07/07/16 01:00 93 07/07/16 01:00 85 18 108/72 91 Nasal Cannula 3.00 07/07/16 00:00 94 3.00 07/07/16 00:00 98.3 88 22 107/72 91 Nasal Cannula 3.00 07/06/16 23:00 74 18 124/74 94 Nasal Cannula 3.00 07/06/16 22:00 103 21 112/65 96 Nasal Cannula 3.00 07/06/16 21:00 96 21 103/67 94 Nasal Cannula 3.00 07/06/16 20:00 94 3.00 07/06/16 20:00 100.0 100 17 110/69 92 Nasal Cannula 3.00 07/06/16 19:09 88 4.00 07/06/16 19:00 98 18 144/91 96 Nasal Cannula 3.00 07/06/16 19:00 100 07/06/16 18:00 98 141/85 99 Nasal Cannula 3.00 07/06/16 17:00 101 79/47 92 Nasal Cannula 3.00 07/06/16 16:00 94 3.00 07/06/16 16:00 23 107/80 100 Nasal Cannula 3.00 07/06/16 15:00 107 23 107/69 Nasal Cannula 3.00 07/06/16 14:00 109 56 115/70 Nasal Cannula 3.00 07/06/16 13:00 108 28 94/85 Nasal Cannula 3.00 07/06/16 12:00 94 3.00 07/06/16 10:00 106 20 104/61 Nasal Cannula 3.00 07/06/16 09:00 100 26 Nasal Cannula 3.00 07/06/16 08:19 93 4.00 07/06/16 08:00 92 36 111/65 95 Nasal Cannula 3.00 07/06/16 08:00 94 3.00 I & O 07/07/16 07:00 Intake Total 5480 ml Output Total 4850 ml Balance 630 ml General Appearance: No Apparent Distress WD/WN Obese Other (Extremely decreased level of alertness but able to respond to voice and follows commands) HEENT: PERRL/EOMI Normal ENT Inspection Pharynx Normal Other (Teeth absent) Neck: Normal Inspection Supple Other (Tender to palpation) Respiratory: Lungs Clear Normal Breath Sounds No Accessory Muscle Use No Respiratory Distress Cardiovascular: Regular Rate, Rhythm No Edema No Murmur Capillary Refill: Less Than 3 Seconds Gastrointestinal: normal bowel sounds non tender soft no organomegaly Extremity: Normal Inspection No Pedal Edema Neurologic/Psychiatric: Motor Weakness (Generalized motor weakness without focal deficit) Other (Extremely somnolent but able to respond to voice and follows commands) Skin: Normal Color Warm/Dry Lymphatic: No Adenopathy Results Lab Laboratory Tests 07/05/16 18:45 07/05/16 23:15 07/06/16 03:15 07/07/16 04:05 Assessment/Plan Assessment/Plan -MS Change - resolved -S/P fall -initial CT negative -Neurochecks Q2 - currently MS is improved Debility -consult PT / OT -Hypotension -resolved -Hypernatremia, Hyperchloremia -1/2 NS COPD -SVNS TID -Anemia -occult stools -Morbid obesity Transfer pt to 4th floor. Clinical Quality Measures DVT/VTE Risk/Contraindication: Risk Factor Score Per Nursin RFS Level Per Nursing on Admit: 2=Moderate WALT CAMACHO DO Jul 07, 2016 07:06
[2016-07-07] MEDS: RT-ALBUTEROL/IPRATROPIUM 3 ML (DUONEB) VIAL INH SCH ×3 (07:40→19:39)
[2016-07-07] MEDS: FAMOTIDINE 20MG/2ML IV (PEPCID) IV SCH ×2 (08:14→21:15)
--- NOTE | 2016-07-07 08:46 | Diagnostic Imaging Report ---
INDICATION: Dyspnea. DISCUSSION: Single portable upright view of the chest was obtained, comparison 07/06/2016. Improved aeration of the bilateral lungs. Normal heart size. No focal consolidation, pleural fluid, or pneumothorax. No osseous abnormality. IMPRESSION: 1. Negative portable chest. Dictated by: Dictated on workstation # [id number]
--- NOTE | 2016-07-07 09:21 | Progress Note-Hospitalist ---
Progress Note HPI/CC on Admission CC: AMS HPI: This is a 51-year-old white female clinic patient of [facility] with oxygen dependent COPD the presents to the ICU after found unresponsive with acute renal failure. Workup ensued and aggressive IV fluid given for hypotension with improvement of creatinine today. Dr. Tillman has provided consultation services and we believe that it was a Xanax overdose probable nonpurposeful because she denies that very but overall feeling much better and wanting to eat breakfast. She denies any nausea or pain. Progress Notes/Assess & Plan Date Seen 07/07/16 Admission Dx/Process -MS Change - probably secondary to Xanax- OD - pt denies this possibility but improving -S/P fall -Hypotension s/p 5 liters of fluid and Albumin -Hypernatremia, Hyperchloremia receiving 1/2NS IVF COPD O2 dependent -Anemia -Morbid obesity ARF improved today on IVF Diagonsis/Assessment & Plan Patient feeling much better but just weak and has a fall risk Declines alf facility at discharge that she has plenty of people helping her at the night for [facility] Creatinine much improved at 1.4 Overall doing much better and oxygen maintain and denies any shortness of breath No fever, vital signs stable, pleasant, chronically ill, obese Regular rate and rhythm, clear to auscultation bilaterally No edema Laboratory Tests 07/07/16 04:05 Assessment: -MS Change - probably secondary to Xanax- OD - pt denies this possibility but improving and now resolved -S/P fall w/increased fall risk residual -Hypotension s/p 5 liters of fluid and Albumin -Hypernatremia, Hyperchloremia receiving 1/2NS IVF COPD O2 dependent -Anemia -Morbid obesity ARF improved today on IVF Plan: Tx to floor Monitor creatinine O2 Nebs SCD's Monitor sodium level SW consultation May need PT/OT CORNELIUS EAGLE DO Jul 07, 2016 09:21
--- NOTE | 2016-07-07 10:57 | Physical Therapy Daily Note ---
PT Daily Note-Current Subjective Palma thinks she will be going home to [facility] tomorrow. She states she feels confident in her ability to be home. She has an aide to help her with shopping etc. Has FWW. Mental Status Patient Orientation: Person, Place, Time, Situation Attachments: Oxygen, Allen Catheter, IV O2 @ 3L Transfers Functional [place] Measure 0=Not Assessed/NA 4=Minimal Assistance 1=Total Assistance 5=Supervision or Setup 2=Maximal Assistance 6=Modified [place] 3=Moderate Assistance 7=Complete IndependenceIRFPAI Quality Coding Scale 6 Independent with activity with or without an assistive device 5 Patient requires set up or clean up by helper. Patient completes activity by themselves 4 Supervision or touching assist (CGA). [place] provide cues , steadying assist 3 The helper provides less than half the effort to complete the activity 2 The helper provides more than half the effort to complete the activity 1 Dependent. The helper does all the effort to complete an activity 7 Patient refused to complete or attempt activity 9 The patient did not perform the activity before the current illness or injury 88 Not attempted due to Medical conditions or safety concerns Transfers (B, C, W/C) (FIM): 5 Scootin Supine to/from Sit: 5 Sit to/from Stand: 5 Bed to/from Chair: 5 Set up for )2 and Ivs. Weight Bearing Weight Bearing Restriction: Weight Bearing/Tolerated Gait Training Gait (FIM): 4 Distance: 200 ft Gait Level of Assist: 1 Gait Persons Needed: 1 Gait Assistive Device: FWW Needed to sit and rest after 150 ft. O2 sats remained above 95%. Exercises Supine Ex: Ankle pumps, Quad Set, Heel Slides Supine Reps: 10 Assessment Current Status: Good Progress Moving well, only hindered by IVs and O2. Fatigued with amb but O2 sats remained above 95% PT Fpc Goals Clinical Laboratory Aide Goals PT Clinical Laboratory Aide Goals Time Frame: Jul 17, 2016 Transfers (B,C,W/C) (FIM): 6 Gait (FIM): 5 Gait distance (FIM): 3=150 ft Distance: 150 Gait Level of Assist: 5 Gait Assistive Device: Walker 4 Wheeled PT Plan Problem List Problem List: Activity Tolerance, Functional Strength Treatment/Plan Treatment Plan: Continue Plan of Care Treatment Plan: Bed Mobility, Functional Activity Nora, Functional Strength, Gait, Safety Treatment Duration: Jul 17, 2016 Visits Per Week: 11 Pt/Family Agrees w/Plan: Yes Safety Risks/Education Patient Education: Gait Training Time/GCodes Time In: 1005 Time Out: 1030 Total Billed Treatment Time: 25 Total Billed Treatment Visit, EX, GT MARTA EDWARDS PT Jul 07, 2016 10:57
--- NOTE | 2016-07-07 16:11 | Occupational Therapy Eval ---
OT Evaluation-General/PLF Medical Diagnosis Admission Date Jul 05, 2016 at 20:52 Medical Diagnosis: AMS, acute renal failure Onset Date: Jul 05, 2016 Therapy Diagnosis Therapy Diagnosis: decreased self care Height/Weight Height (Feet): 5 Height (Inches): 4.00 Weight (Pounds): 277 Weight (Ounces): 9.6 Precautions Precautions/Isolations: Fall Prevention, Standard Precautions Safety Interventions: Bed Exit Alarm, Reorient-PRN Weight Bear Status Weight Bearing Restriction: Weight Bearing/Tolerated Referral Physician: Layne Referral Reason: Evaluation/Treatment Medical History Pertinent Medical History: Arthritis, COPD, DM, Neuropathy, Renal Insufficiency Additional Medical History Morbid obesity, tobaccoism, O2 dependant, sleep apnea, seizure disorder, renal failure, PKD, diverticulosis, ulcer, chronic constipation, bipolar, suicide ideation, polysubstance abuse Current History Fell at home ([facility]), found to have UTI and ARF, hypotension. Transferred to floor today Reviewed History: Yes Social History Home: Apartment ([facility]) Current Living Status: Alone Entry Into Home: Elevator ADL-Prior Level of Function ADL PLOF Comments Pt reported that she has been able to manage all of her own basic ADLs until now. She normally walks with a FWW and uses O2 at home throughout the day. She does not drive. DME/Equipment: Tub/Shower Drive Self: No OT Current Status Subjective Pt seen in room, asleep but easily awakened. Pt reported pain 0/10. Appearance Alert, somewhat cooperative. Believed she was at the [facility] and had been to group activities this afternoon Mental Status/Objective Patient Orientation: Person, Time (close on date), Situation Attachments: IV, Oxygen Current Hand Dominance: Right Upper Extremity ROM Grossly WFL bilat Upper Extremity Strength Grossly WFL bilat ADL-Treatment ADL-Current Pt was able to move from supine to sit EOB by herself but with some difficulty due to weight. Able to sit EOB without support. Could reach forward and take slipper socks off. Pt declined other ADLs, including toileting or dressing. Pt reported she may be discharged to home tomorrow. Functional [place] Measure 0=Not Assessed/NA 4=Minimal Assistance 1=Total Assistance 5=Supervision or Setup 2=Maximal Assistance 6=Modified [place] 3=Moderate Assistance 7=Complete IndependenceIRFPAI Quality Coding Scale 6 Independent with activity with or without an assistive device 5 Patient requires set up or clean up by helper. Patient completes activity by themselves 4 Supervision or touching assist (CGA). [place] provide cues , steadying assist 3 The helper provides less than half the effort to complete the activity 2 The helper provides more than half the effort to complete the activity 1 Dependent. The helper does all the effort to complete an activity 7 Patient refused to complete or attempt activity 9 The patient did not perform the activity before the current illness or injury 88 Not attempted due to Medical conditions or safety concerns Education OT Patient Education: Purpose of tx/functional activities, Rehab process Teaching Recipient: Patient Response to Teaching: Verbalize Understanding OT Veneer Gluer Goals Veneer Gluer Goals Time Frame: Jul 10, 2016 Grooming(FIM): 6 Bathing(FIM): 6 Upper Body Dressing(FIM): 6 Lower Body Dressing(FIM): 6 Toileting(FIM): 6 Toilet/Commode Transfer(FIM): 6 Shower Transfer(FIM): 6 Additional Goals: 3-ImproveStrength/Nora 1=Demonstrate adherence to instructed precautions during ADL tasks. 2=Patient will verbalize/demonstrate understanding of assistive devices/ modifications for ADL. 3=Patient will improve strength/tolerance for activity to enable patient to perform ADL's. OT Education/Plan Problem List/Assessment Assessment: Dependent Transfers, Impaired Funct Balance, Impaired Self-Care Skills Pt would benefit from skilled OT to increase her independence in basic self care to allow her to return home safely to her apartment Discharge Recommendations Plan/Recommendations: Continue POC Treatment Plan/Plan of Care Treatment,Training & Education: Yes Patient would benefit from OT for education, treatment and training to promote independence in ADL's, mobility, safety and/or upper extremity function for ADL' s. Plan of Care: ADL Retraining, Functional Mobility, UE Neuromus Re-Ed/Coord Treatment Duration: Jul 10, 2016 # of days/week 4 Visits Per Week: 4 Agreement: Yes Rehab Potential: Good Time/GCodes Start Time: 15:40 Stop Time: 15:55 Total Time Billed (hr/min): 15 Billed Treatment Time visit, 15 minutes evaluation low intensity JUAN ALBERTO BOB OT Jul 07, 2016 16:11
[2016-07-07] MEDS: LEVOFLOXACIN 250 MG/D5W 50 ML (PRE-MIX) IV SCH (21:15)
[2016-07-08] MEDS: KCL 20 MEQ TAB (K-DUR) PO SCH (04:38)
[2016-07-08 05:35] LABS: BASOPHILS % (AUTO) 0 % (0-10); EOSINOPHILS # (AUTO) 0.1 10^3/uL (0.0-0.3); EOSINOPHILS % (AUTO) 1 % (0-10); LYMPHOCYTES # (AUTO) 1.4 X 10^3 (1.0-4.0); LYMPHOCYTES % (AUTO) 18 % (12-44); MEAN CORPUSCULAR HEMOGLOBIN 30 PG (25-34); MEAN CORPUSCULAR HGB CONC 31 G/DL (32-36); MEAN CORPUSCULAR VOLUME 96 FL (80-99); MEAN PLATELET VOLUME 9.9 FL (7.4-10.4); MONOCYTES # (AUTO) 0.8 X 10^3 (0.0-1.0); MONOCYTES % (AUTO) 9 % (0-12); NEUTROPHILS # (AUTO) 5.8 X 10^3 (1.8-7.8); NEUTROPHILS % (AUTO) 72 % (42-75); PLATELET COUNT 268 10^3/uL (130-400); RED BLOOD COUNT 3.05 10^6/uL (4.35-5.85); WHITE BLOOD COUNT 8.1 10^3/uL (4.3-11.0)
[2016-07-08] MEDS: CATHETER FLUSH 10 ML SYR IV SCH ×2 (05:57→14:00)
[2016-07-08 05:58] LABS: CALCIUM 9.7 MG/DL (8.5-10.1); CREATININE SERUM 1.49 MG/DL (0.60-1.30); MAGNESIUM 1.6 MG/DL (1.8-2.4); PHOSPHORUS 4.4 MG/DL (2.3-4.7)
[2016-07-08 06:09] LABS: POTASSIUM 5.2 MMOL/L (3.6-5.0)
[2016-07-08] MEDS: inSUlin (REGULAR) HUMAN 1 UNIT/0.01 ML (CHARGE PER UNIT) SC SCH ×2 (06:15→11:30)
--- NOTE | 2016-07-08 06:33 | Pulmonary Progress Note ---
Subjective Subjective/Events-last exam No complications noted. Exam Exam Vital Signs Date Time Temp Pulse Resp B/P (MAP) Pulse Ox O2 Delivery O2 Flow Rate FiO2 07/07/16 23:16 98.2 93 20 130/74 94 Nasal Cannula 3.00 07/07/16 20:00 95 3.00 07/07/16 19:39 92 3.00 07/07/16 16:00 97.9 106 20 145/78 96 Nasal Cannula 3.00 07/07/16 14:04 3.00 07/07/16 12:00 95 3.00 07/07/16 11:43 97.4 102 16 113/65 95 Nasal Cannula 3.00 07/07/16 08:12 91 3.00 07/07/16 08:10 97.8 103 23 139/75 91 Nasal Cannula 3.00 07/07/16 07:40 91 2.00 07/07/16 07:00 94 I & O 07/08/16 07:00 Intake Total 2280 ml Output Total 3050 ml Balance -770 ml General Appearance: No Apparent Distress, WD/WN, Obese HEENT: PERRL/EOMI, Normal ENT Inspection, Pharynx Normal, Other (Teeth absent) Neck: Normal Inspection, Supple, Other (Tender to palpation) Respiratory: Lungs Clear, Normal Breath Sounds, No Accessory Muscle Use, No Respiratory Distress Cardiovascular: Regular Rate, Rhythm, No Edema, No Murmur Capillary Refill: Less Than 3 Seconds Gastrointestinal: normal bowel sounds, non tender, soft, no organomegaly Extremity: Normal Inspection, No Pedal Edema Neurologic/Psychiatric: Motor Weakness (Generalized motor weakness without focal deficit) Skin: Normal Color, Warm/Dry Lymphatic: No Adenopathy Results Lab Laboratory Tests 07/07/16 04:05 07/08/16 05:28 Assessment/Plan Assessment/Plan -MS Change - resolved -S/P fall Debility -consult PT / OT -Hypotension -resolved COPD -SVNS TID -Anemia -occult stools -Morbid obesity PT is doing much better. No complications noted. Clinical Quality Measures DVT/VTE Risk/Contraindication: Risk Factor Score Per Nursin RFS Level Per Nursing on Admit: 2=Moderate WALT CAMACHO DO Jul 08, 2016 06:33
[2016-07-08] MEDS: RT-ALBUTEROL/IPRATROPIUM 3 ML (DUONEB) VIAL INH SCH ×2 (07:42→14:06)
[2016-07-08 08:36] VITALS: BP 161/78
[2016-07-08] MEDS: FAMOTIDINE 20MG/2ML IV (PEPCID) IV SCH (08:53)
[2016-07-08] MEDS: CATHETER FLUSH 10 ML SYR IV PRN (08:53)
--- NOTE | 2016-07-08 09:13 | Occupational Ther Daily Note ---
OT Current Status-Daily Note Subjective Pt alert, lying in bed. Pt agreed to therapy. Pt stated "I am going home today." Mental Status/Objective Patient Orientation: Person, Place, Time, Situation Functional [place] Measure 0=Not Assessed/NA 4=Minimal Assistance 1=Total Assistance 5=Supervision or Setup 2=Maximal Assistance 6=Modified [place] 3=Moderate Assistance 7=Complete [place] Attachments: IV, Oxygen ADL-Treatment Bathing (FIM): 6 (Using shower bench, grabbars and hand held shower pt is able to complete. O2 used in shower.) Bathing Location: L Arm, R Arm, L Upper Leg, R Upper Leg, L Lower Leg ( including foot), R Lower Leg (including foot), Chest, Abdomen, Buttocks, Perineal Area Upper Body (FIM): 6 (Pt just put back on her clothes she doffed. Pt able to complete by self.) Lower Body Dressing (FIM): 6 (Pt doffed socks by using feet to push off. Donned /doffed pants by self using grabbar and FWW in standing when hiking pants over feet. Pt donned socks while sitting on bed and bringing feet up onto bed to reach feet.) Transfers (B, C, W/C) (FIM): 6 (Using FWW) Shower Transfer(FIM): 6 (Using FWW, shower bench and grabbars pt is able to complete by self.) After therapy, pt lying in bed with call light/phone in reach. All needs met in room, O2 in place. OT Short Term Goals Short Term Goals 1=Demonstrate adherence to instructed precautions during ADL tasks. 2=Patient will verbalize/demonstrate understanding of assistive devices/ modifications for ADL. 3=Patient will improve strength/tolerance for activity to enable patient to perform ADL's. OT Senior Care Goals Senior Care Goals Time Frame: Jul 10, 2016 Grooming(FIM): 6 Bathing(FIM): 6 Upper Body Dressing(FIM): 6 Lower Body Dressing(FIM): 6 Toileting(FIM): 6 Toilet/Commode Transfer(FIM): 6 Shower Transfer(FIM): 6 Additional Goals: 3-ImproveStrength/Nora 1=Demonstrate adherence to instructed precautions during ADL tasks. 2=Patient will verbalize/demonstrate understanding of assistive devices/ modifications for ADL. 3=Patient will improve strength/tolerance for activity to enable patient to perform ADL's. OT Education/Plan Problem List/Assessment Pt would benefit from skilled OT to increase her independence in basic self care to allow her to return home safely to her apartment Discharge Recommendations Plan/Recommendations: Continue POC Treatment Plan/Plan of Care Patient would benefit from OT for education, treatment and training to promote independence in ADL's, mobility, safety and/or upper extremity function for ADL' s. Plan of Care: ADL Retraining, Functional Mobility, UE Neuromus Re-Ed/Coord Treatment Duration: Jul 10, 2016 Visits Per Week: 4 Agreement: Yes Rehab Potential: Good Time/GCodes Start Time: 08:30 Stop Time: 08:53 Total Time Billed (hr/min): 23 Billed Treatment Time 1 visit-ADL 2 (23 min) ISAEL HAYWOOD Jul 08, 2016 09:13
--- NOTE | 2016-07-08 09:17 | Discharge Summary-Hospitalist ---
Diagnosis/Chief Complaint Date of Admission Jul 05, 2016 at 20:52 Date of Discharge Discharge Date: Jul 08, 2016 Admission Diagnosis -MS Change - probably secondary to Xanax- OD - pt denies this possibility but improving -S/P fall -Hypotension s/p 5 liters of fluid and Albumin -Hypernatremia, Hyperchloremia receiving 1/2NS IVF COPD O2 dependent -Anemia -Morbid obesity ARF improved today on IVF Discharge Diagnosis -MS Change - probably secondary to Xanax- OD - pt denies this possibility but improving -S/P fall -Hypotension s/p 5 liters of fluid and Albumin -Hypernatremia, Hyperchloremia receiving 1/2NS IVF COPD O2 dependent -Anemia -Morbid obesity ARF improved today on IVF Patient feeling much better but just weak and has a fall risk Declines [facility] at discharge that she has plenty of people helping her at the night for [facility] Creatinine much improved at 1.4 Overall doing much better and oxygen maintain and denies any shortness of breath No fever, vital signs stable, pleasant, chronically ill, obese Regular rate and rhythm, clear to auscultation bilaterally No edema Laboratory Tests 07/07/16 04:05 Assessment: -MS Change - probably secondary to Xanax- OD - pt denies this possibility but improving and now resolved -S/P fall w/increased fall risk residual -Hypotension s/p 5 liters of fluid and Albumin -Hypernatremia, Hyperchloremia receiving 1/2NS IVF COPD O2 dependent -Anemia -Morbid obesity ARF improved today on IVF Plan: Tx to floor Monitor creatinine O2 Nebs SCD's Monitor sodium level SW consultation May need HH PT/OT Reason Hospital Visit/Course CC: AMS HPI: This is a 51-year-old white female clinic patient of [facility] with oxygen dependent COPD the presents to the ICU after found unresponsive with acute renal failure. Workup ensued and aggressive IV fluid given for hypotension with improvement of creatinine today. Dr. Tillman has provided consultation services and we believe that it was a Xanax overdose probable nonpurposeful because she denies that very but overall feeling much better and wanting to eat breakfast. She denies any nausea or pain. Notes from 07/08/2016: Chart Review: RN called me yesterday reporting pt wished to leave AMA and I told her to have pt sign the paper. Pt's family then talked to pt and convinced her to stay until today. Her family will bring her O2 tank and pt will DC today. 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 Patient Interview: Pt states that she is ready for DC. Dr. Eagle informs pt that she will have a close follow-up with [facility]. Pt has no needs or concerns at this time. Physical exam stable. Pt reports normal BMs. no fever, vital signs stable, pleasant, oriented 3 Regular rate and rhythm, clear to auscultation bilaterally No edema Plan: DC Levaquin Reconcile all home meds DC with [facility] follow-up. Scribed by Leonardo Nma under the direct supervision of Dr. Eagle. Hospital course: Patient had an uneventful course she was placed in ICU for oversedation of medication and acute renal failure of which IV fluid resuscitation resolve the renal failure back to renal insufficiency of 1.5. She wanted to leave AGAINST MEDICAL ADVICE and and her family convinced her to stay until this morning when oxygen tank be delivered and she was discharged uneventfully in stable condition with close follow-up with [facility] to work on prevention of nonpurposeful overdoses in the future. Discharge Summary Discharge Physical Examination Allergies: Coded Allergies: Penicillins (Verified Allergy, Unknown, 07/05/16) cephalexin (Verified Allergy, Unknown, 07/05/16) prochlorperazine (Verified Allergy, Unknown, 07/05/16) quetiapine (Verified Allergy, Unknown, 07/05/16) Vitals & I&Os Vital Signs Date Time Temp Pulse Resp B/P (MAP) Pulse Ox O2 Delivery O2 Flow Rate FiO2 07/08/16 08:36 97.1 100 16 161/78 98 Nasal Cannula 3.00 Hospital Course Labs (last 24 hrs) Laboratory Tests 07/07/16 16:15: Glucometer 133H 07/07/16 20:25: Glucometer 179H 07/08/16 05:28: White Blood Count 8.1, Red Blood Count 3.05L, Hemoglobin 9.1L, Hematocrit 29L, Mean Corpuscular Volume 96, Mean Corpuscular Hemoglobin 30, Mean Corpuscular Hemoglobin Concent 31L, Red Cell Distribution Width 16.0H, Platelet Count 268, Mean Platelet Volume 9.9, Neutrophils (%) (Auto) 72, Lymphocytes (%) (Auto) 18, Monocytes (%) (Auto) 9, Eosinophils (%) (Auto) 1, Basophils (%) (Auto) 0, Neutrophils # (Auto) 5.8, Lymphocytes # (Auto) 1.4, Monocytes # (Auto) 0.8, Eosinophils # (Auto) 0.1, Basophils # (Auto) 0.0, Sodium Level 144, Potassium Level 5.2H, Chloride Level 112H, Carbon Dioxide Level 21, Anion Gap 11, Blood Urea Nitrogen 14, Creatinine 1.49H, Estimat Glomerular Filtration Rate 37, BUN/ Creatinine Ratio 9, Glucose Level 164H, Calcium Level 9.7, Phosphorus Level 4.4 , Magnesium Level 1.6L 07/08/16 10:36: Glucometer 224H Microbiology 07/05/16 Blood Culture - Preliminary, Resulted No growth 07/05/16 MRSA Screen - Final, Complete MRSA not isolated 07/05/16 Urine Culture - Final, Complete Pending Labs Laboratory Tests 07/08/16 05:28: White Blood Count 8.1, Red Blood Count 3.05, Hemoglobin 9.1, Hematocrit 29, Mean Corpuscular Volume 96, Mean Corpuscular Hemoglobin 30, Mean Corpuscular Hemoglobin Concent 31, Red Cell Distribution Width 16.0, Platelet Count 268, Mean Platelet Volume 9.9, Neutrophils (%) (Auto) 72, Lymphocytes (%) (Auto) 18, Monocytes (%) (Auto) 9, Eosinophils (%) (Auto) 1, Basophils (%) (Auto) 0, Neutrophils # (Auto) 5.8, Lymphocytes # (Auto) 1.4, Monocytes # (Auto) 0.8, Eosinophils # (Auto) 0.1, Basophils # (Auto) 0.0, Sodium Level 144, Potassium Level 5.2, Chloride Level 112, Carbon Dioxide Level 21, Anion Gap 11, Blood Urea Nitrogen 14, Creatinine 1.49, Estimat Glomerular Filtration Rate 37, BUN/ Creatinine Ratio 9, Glucose Level 164, Calcium Level 9.7, Phosphorus Level 4.4, Magnesium Level 1.6 07/08/16 10:36: Glucometer 224 Discharge Home Medications: Active Scripts Active Reported Chantix (Varenicline Tartrate) 1 Mg Tablet 1 Mg PO BID Trihexyphenidyl HCl 5 Mg Tablet 5 Mg PO BID WITH MEALS Simvastatin 40 Mg Tablet 40 Mg PO HS Rizatriptan (Rizatriptan Benzoate) 10 Mg Tab.rapdis SL DAILY PRN PRN Omeprazole 20 Mg Capsule.dr 20 Mg PO BID Lisinopril 10 Mg Tablet 10 Mg PO DAILY Glipizide 10 Mg Tablet 10 Mg PO DAILY Ventolin Hfa (Albuterol Sulfate) 1 Puff Puff 2 Puff IH QID PRN Pioglitazone HCl 30 Mg Tablet 30 Mg PO DAILY Lyrica (Pregabalin) 150 Mg Capsule 150 Mg PO BID Alprazolam 2 Mg Tablet 2 Mg PO BID Loxapine (Loxapine Succinate) 50 Mg Capsule 100 Mg PO BID TAKES 2 (50 MG) CAPSULES Fluoxetine HCl 20 Mg Capsule 20 Mg PO DAILY Doxepin HCl 10 Mg Capsule 10 Mg PO HS Valproic Acid 250 Mg Capsule 500 Mg PO DAILY TAKES 2 (250 MG) CAPSULES Spironolactone 100 Mg Tablet 100 Mg PO DAILY Instructions to patient/family Please see electonic discharge instructions given to patient. Clinical Quality Measures DVT/VTE Risk/Contraindication: Risk Factor Score Per Nursin RFS Level Per Nursing on Admit: 2=Moderate CORNELIUS EAGLE DO Jul 08, 2016 09:17
[2016-07-08] MEDS ORDERED: glipiZIDE 5 MG (GLUCOTROL) TAB PO SCH (09:21)
[2016-07-08] MEDS ORDERED: PREGABALIN 75 MG (LYRICA) CAP PO SCH (09:22)
[2016-07-08] MEDS ORDERED: ALPRAZolam 1 MG (XANAX) TAB PO SCH (09:30)
[2016-07-08] MEDS ORDERED: RT-ALBUTEROL SULF 2.5 MG/3 ML PRE-MIX VIAL INH PRN (09:30)
[2016-07-08] MEDS ORDERED: VALPROIC ACID SYRUP 250 MG/5 ML UDC PO SCH (09:45)
[2016-07-08 14:35] VITALS: BP 161/78
[2016-07-08] MEDS ORDERED: PANTOPRAZOLE 20 MG TABLET (PROTONIX) PO SCH (16:00)
[2016-07-08] MEDS ORDERED: TRIHEXYPHENIDYL 5 MG PO SCH (17:00)
[2016-07-08] MEDS ORDERED: NON-FORMULARY MEDICATION 1 EA EA (Varenicline Tartrate (Chantix) 1 MG) PO SCH (21:00)
[2016-07-08] MEDS ORDERED: LOXAPINE SUCCINATE 100 MG PO SCH (21:00)
[2016-07-08] MEDS ORDERED: SIMvastatin 40 MG (ZOCOR) TAB PO SCH (21:00)
[2016-07-08] MEDS ORDERED: DOXEPIN 10 MG (SINEquan) CAP PO SCH (21:00)
[2016-07-09] MEDS ORDERED: SPIRONOLACTONE 100 MG (ALDACTONE) TABLET PO SCH (09:00)
[2016-07-09] MEDS ORDERED: FLUoxetine HCL 20 MG (PROzac) CAP PO SCH (09:00)
[2016-07-09] MEDS ORDERED: lisINopril 10 MG (PRINIVIL) TAB PO SCH (09:00)
[2016-07-09] MEDS ORDERED: PIOGLITAZONE 30MG (ACTOS) TAB PO SCH (09:00)
== END 2016-07-08 14:35 | disposition home health service (06) | DRG 918 ==
LOC: DELPENDDIS → EDBD 18:37 → ER 18:37 → ICU 20:52 → 4TH 07-07 10:00
PROVIDERS: ADMIT Family Medicine; ATTEND Family Medicine
DX: T42.4X1A Poisoning by benzodiazepines, accidental (unintentional), initial encounter (principal); R41.82 Altered mental status, unspecified; N17.9 Acute kidney failure, unspecified; N39.0 Urinary tract infection, site not specified; Z68.42 Body mass index [BMI] 45.0-49.9, adult; E87.0 Hyperosmolality and hypernatremia; Q61.3 Polycystic kidney, unspecified; R09.02 Hypoxemia; I95.9 Hypotension, unspecified; R47.81 Slurred speech; J44.9 Chronic obstructive pulmonary disease, unspecified; G47.30 Sleep apnea, unspecified; E11.40 Type 2 diabetes mellitus with diabetic neuropathy, unspecified; F41.9 Anxiety disorder, unspecified; F31.9 Bipolar disorder, unspecified; E66.01 Morbid (severe) obesity due to excess calories; D64.9 Anemia, unspecified; G40.909 Epilepsy, unspecified, not intractable, without status epilepticus; E78.00 Pure hypercholesterolemia, unspecified; K57.90 Diverticulosis of intestine, part unspecified, without perforation or abscess without bleeding; E83.42 Hypomagnesemia; E87.8 Other disorders of electrolyte and fluid balance, not elsewhere classified; Z99.81 Dependence on supplemental oxygen; Z79.84 Long term (current) use of oral hypoglycemic drugs; Z87.891 Personal history of nicotine dependence; Z87.11 Personal history of peptic ulcer disease
CPT/HCPCS: 36415; 51702; 70450; 71010; 72125; 80048; 80053; 80164; 80306; 80320; 80329; 81000; 82274; 82805; 82962; 83605; 83735; 83880; 84100; 84439; 84443; 84484; 85025; 85610; 85730; 86141; 87040; 87081; 87088; 93005; 93041; 94640; 94760; 96361; 96365; 96375